=== PATIENT | female | born 1975 | race Caucasian/White ===

== ENCOUNTER → 2017-04-17 | Outpatient (CLI) | payer MEDICARE | END | disposition home or self-care (01) | LOC: GMA 14:22 | PROVIDERS: ATTEND Nurse Practitioner Family | DX: N30.00 Acute cystitis without hematuria (principal) ==

== ENCOUNTER → 2017-06-21 | Outpatient (CLI) | payer MEDICARE | LOC: GMA 16:35 | PROVIDERS: ATTEND Nurse Practitioner Family | DX: N30.00 Acute cystitis without hematuria (principal) ==

== ENCOUNTER → 2017-07-27 | Outpatient (CLI) | payer MEDICARE | END | disposition home or self-care (01) | LOC: GMAM 12:16 | PROVIDERS: ATTEND Family Medicine | DX: E03.8 Other specified hypothyroidism (principal) ==

== ENCOUNTER → 2017-07-31 | Outpatient (CLI) | payer MEDICARE, BC ==
--- NOTE | 2017-07-31 17:03 | CT ---
EXAM DESCRIPTION: CT ABDOMEN AND PELVIS WITHOUT AND WITH CONTRAST CLINICAL HISTORY: MICROHEMATURIA COMPARISON: None Available. TECHNIQUE: CT of the abdomen and pelvis are performed prior to and during IV bolus administration of 100 mL of Isovue 300. Oral contrast media is administered as well. FINDINGS: The lung bases are clear of infiltrate. Liver is normal in size and parenchymal appearance. Spleen, pancreas, and kidneys are unremarkable. There is a large lamellated ovoid bladder calculus which appears to be within a diverticulum at the right posterolateral inferior margin of the urinary bladder. This measures 2.2 x 1.5 cm in size. There is no lymphadenopathy, inflammation, or free fluid observed. IMPRESSION: Right-sided bladder calculus This exam was performed according to our departmental dose-optimization program, which includes automated exposure control, adjustment of the mA and/or kV according to patient size and/or use of iterative reconstruction technique. Electronically signed by: Broderick Villarreal MD 07/31/2017 5:02 PM CDT
== END ==
LOC: CT 13:39
PROVIDERS: ATTEND Urology
DX: N39.0 Urinary tract infection, site not specified (principal); N21.0 Calculus in bladder; R31.29 Other microscopic hematuria; D64.9 Anemia, unspecified

== ENCOUNTER → 2020-03-22 | Outpatient (CLI) | payer MEDICARE | LOC: GMAM 11:32 | PROVIDERS: ATTEND Family Medicine | DX: D64.9 Anemia, unspecified (principal); E55.9 Vitamin D deficiency, unspecified; I10 Essential (primary) hypertension; Z79.899 Other long term (current) drug therapy ==

== ENCOUNTER → 2020-09-13 | Outpatient (CLI) | payer MEDICARE | LOC: GMAM 12:16 | PROVIDERS: ATTEND Family Medicine | DX: U07.1 COVID-19 (principal); R09.02 Hypoxemia; R71.8 Other abnormality of red blood cells ==